=== PATIENT | female | born 1985 | race Caucasian/White ===

== ENCOUNTER 2021-09-30 17:57 | Observation (INO) ==
[2021-09-30] MEDS ORDERED: Isovue-370 500 ML BOTTLE IVP ONE (20:52)
[2021-09-30 21:20] LABS: Hematocrit 43.2 % (35.3-44.9); Hemoglobin 14.4 g/dL (11.5-15.4); Mean Corpuscular HGB Conc 33.3 g/dL (31.6-35.5); Mean Corpuscular Hemoglobin 32.2 pg (28.0-33.3); Mean Corpuscular Volume 96.6 fL (83.0-100.0); Mean Platelet Volume 10.1 fL (9.4-12.4); Platelet Count 259 K/mcL (140-400); Red Blood Count 4.47 M/mcL (3.82-4.97); Red Cell Distribution Width 12.1 % (11.5-14.5); White Blood Count 9.1 K/mcL (4.3-11.1)
[2021-09-30 21:30] LABS: INR 1.1; Prothrombin Time 11.8 Seconds (9.4-12.1)
[2021-09-30 21:33] LABS: Activated Partial Thrombo Time 35.9 Seconds (26.0-36.0)
[2021-09-30 21:40] LABS: BUN/Creatinine Ratio 10 (6-26); Blood Urea Nitrogen 8 mg/dL (6-20); Calcium 9.8 mg/dL (8.6-10.3); Carbon Dioxide 28 mEq/L (23-29); Chloride 101 mEq/L (98-107); Creatine Kinase 50 Units/L (30-223); Ethanol < 10 mg/dL (Less than 10); Glucose 90 mg/dL (70-105); Osmolality,Calculated 280 (280-300); Potassium 3.6 mEq/L (3.5-5.1); Sodium 136 mEq/L (136-145); eGFR For African Americans > 60 (> 60); eGFR For Non-African Americans > 60 (> 60)
[2021-09-30 21:41] LABS: Troponin I < 0.03 ng/mL (< 0.04)
[2021-09-30] MEDS ORDERED: Prochlorperazine 10 MG/2 ML VIAL IVP ONE (21:48)
[2021-09-30] MEDS ORDERED: Ketorolac 30 MG/ML VIAL IVP ONE (21:48)
[2021-09-30] MEDS ORDERED: Aspirin 325 MG TABLET PO ONE (22:58)
[2021-09-30] MEDS ORDERED: Naloxone 0.4 MG/ML INJ IVP PRN (23:15)
[2021-09-30] MEDS ORDERED: Melatonin 3 MG TABLET PO PRN (23:15)
[2021-09-30] MEDS ORDERED: Ondansetron 4 MG/2 ML VIAL IVP PRN (23:15)
[2021-09-30] MEDS ORDERED: Acetaminophen 325 MG TABLET PO PRN (23:15)
[2021-10-01 00:05] VITALS: BP 126/72; PULSE 73; TEMP 97.7; O2SAT 97
[2021-10-01] MEDS ORDERED: diazePAM 5 MG TABLET PO PRN (00:39)
[2021-10-01 01:25] LABS: Bilirubin,Urine Negative (Negative); Blood,Urine Negative (Negative); Clarity,Urine Clear (Clear); Color,Urine Colorless (Yellow); Glucose,Urine (UA) Normal (Normal); Ketones,Urine Negative (Negative); Leukocyte Esterase,Urine Negative (Negative); Nitrite,Urine Negative (Negative); Protein,Urine Negative (Neg-Trace); Specific Gravity,Urine > 1.030 (1.010-1.025); Urobilinogen,Urine Normal (Normal)
[2021-10-01 01:43] LABS: Amphetamine Screen,Urine Negative ng/mL (Cutoff=1000); Barbiturate Screen,Urine Negative ng/mL (Cutoff=200); Benzodiazepines Screen,Urine Positive ng/mL (Cutoff=200); Cannabinoid Screen,Urine Positive ng/mL (Cutoff = 50); Cocaine Screen,Urine Negative ng/mL (Cutoff= 300); Opiate Screen,Urine Negative ng/mL (Cutoff=300); Phencyclidine Screen,Urine Negative ng/mL (Cutoff=25)
[2021-10-01] MEDS ORDERED: Prochlorperazine 10 MG/2 ML VIAL IVP ONE (02:23)
[2021-10-01] MEDS ORDERED: Ketorolac 30 MG/ML VIAL IVP ONE (02:23)
[2021-10-01] MEDS ORDERED: Aspirin Enteric Coated 81 MG Tablet PO SCH (09:00)
== END 2021-10-01 03:21 | disposition left against medical advice (07) ==
LOC: SUATTDRO → EMEROOARM 17:57 → 3BNU 17:57
PROVIDERS: ADMIT Internal Medicine; ATTEND Internal Medicine